=== PATIENT | female | born 1935 | race Caucasian/White ===

== ENCOUNTER 2016-06-25 09:45 | Emergency (ER) | payer MEDICARE, OTHER ==
[~2016-06-25] VITALS: Ht 154.9 cm; Wt 67.2 kg
[~2016-06-25 09:45] MED LIST: AMLO-512 PO; CLON0.1T PO; LOSA50TA37 PO; LOVA20TA3 PO; PANT40TA25 PO; TRAZ-144 PO
[2016-06-25] MEDS ORDERED: PROME5L PO (09:53)
[2016-06-25] MEDS ORDERED: ACETAMINOPHEN 500 MG TABLET PO ONE (10:30)
[2016-06-25 11:04] LABS: INFLUENZA TYPE B POSITIVE FOR TYPE B (NEGATIVE)
[2016-06-25 13:20] LABS: HEMATOCRIT 32.4 % (36-46); HEMOGLOBIN 10.6 g/dL (12.0-16.0); MEAN CORPUSCULAR HEMOGLOBIN 28.1 pg (26.0-34.0); MEAN CORPUSCULAR HGB CONC 32.7 G/dL (31.0-37.0); MEAN CORPUSCULAR VOLUME 86 fL (80-100); PLATELET COUNT (AUTO) 114 K/uL (150-450); RED BLOOD CELL COUNT(AUTO) 3.78 MIL/uL (4.00-5.20); RED CELL DISTRIBUTION WIDTH 18.4 % (11.5-14.5); WHITE BLOOD COUNT (AUTO) 9.1 K/uL (4.5-11.0)
[2016-06-25 13:39] LABS: LACTIC ACID 1.1 mmol/L (0.4-2.0)
[2016-06-25 13:41] LABS: BAND NEUTROPHILS % (MANUAL) 12 % (1-5); LYMPHOCYTES % (MANUAL) 6 % (22-44); RBC MORPHOLOGY COMMENT ABNORMAL RBC MORPH; TOTAL CELLS COUNTED 100
[2016-06-25 14:02] LABS: CALCIUM, TOTAL 8.9 mg/dL (8.8-10.5); CREATININE 1.1 mg/dL (0.60-1.30); POTASSIUM 3.8 mmol/L (3.5-5.1)
[2016-06-25 14:10] LABS: BILIRUBIN,TOTAL 0.3 mg/dL (0.1-1.0)
[2016-06-25 14:11] LABS: ALBUMIN 2.8 g/dL (3.4-5.0); TOTAL PROTEIN, SERUM 7.2 g/dL (6.4-8.2)
[2016-06-25 14:14] VITALS: BP 156/61
== END 2016-06-25 15:41 | disposition home or self-care (01) ==
LOC: EMS 09:47
DX: J11.1 Influenza due to unidentified influenza virus with other respiratory manifestations (principal); K21.9 Gastro-esophageal reflux disease without esophagitis; I10 Essential (primary) hypertension; Z88.1 Allergy status to other antibiotic agents; Z91.013 Allergy to seafood
CPT/HCPCS: 71020; 83605; 87040; 87804; 99285